=== PATIENT | female | born 1930 | race Caucasian/White ===

== ENCOUNTER → 2017-09-17 08:15 | Outpatient (CLI) | payer MEDICARE, BC | END | disposition home or self-care (01) | LOC: D.CT 08:15 | DX: J44.9 Chronic obstructive pulmonary disease, unspecified (principal) ==

== ENCOUNTER → 2017-10-07 10:00 | Outpatient (CLI) | payer MEDICARE, BC | END | disposition home or self-care (01) | LOC: D.RT 10:00 | DX: J44.9 Chronic obstructive pulmonary disease, unspecified (principal) ==

== ENCOUNTER → 2017-12-02 09:34 | Outpatient (CLI) | payer MEDICARE, BC | END | disposition home or self-care (01) | LOC: D.CT 09:34 | DX: R26.89 Other abnormalities of gait and mobility (principal) ==

== ENCOUNTER → 2018-01-02 12:40 | Outpatient (CLI) | payer MEDICARE, BC | END | disposition home or self-care (01) | LOC: D.RT 12:40 | DX: R06.09 Other forms of dyspnea (principal) ==

== ENCOUNTER 2018-02-22 03:01 | Emergency (ER) | payer MEDICARE, BC ==
[~2018-02-22] VITALS: Ht 157.5 cm; Wt 50.0 kg
[2018-02-22 03:08] VITALS: Ht 157.5 cm; Wt 50.0 kg
[2018-02-22] MEDS ORDERED: NORVASC2.5 MG PO (03:09)
[2018-02-22] MEDS ORDERED: TOPROL XL25 MG PO (03:09)
[2018-02-22] MEDS ORDERED: METAMUCIL PACKE1 PKT PO (03:10)
[2018-02-22] MEDS ORDERED: CELEBREX200 MG PO (03:10)
[2018-02-22] MEDS ORDERED: MIRALAX17 GM PO (03:10)
[2018-02-22] MEDS ORDERED: BAYER CHEWABLE81 MG PO (03:10)
[2018-02-22] MEDS ORDERED: AMBIEN5 MG PO (03:10)
[2018-02-22] MEDS ORDERED: VITAMIN D31000 UNIT PO (03:11)
[2018-02-22] MEDS ORDERED: AVAPRO150 MG PO (03:11)
[2018-02-22 03:29] LABS: BASOPHILS 1.1 % (0-2); EOSINOPHILS 2.3 % (0-7); HEMATOCRIT 32.6 % (36.0-48.0); HEMOGLOBIN 11.2 g/dL (12-16); IMMATURE GRANULOCYTES 0.3 % (0-5); LYMPHOCYTES 26.1 % (15-50); MCH 29.2 pg (26.0-34.0); MCHC 34.4 g/dL (31.0-37.0); MCV 85.1 fL (80.0-100.0); MEAN PLATELET VOLUME 10.1 fL (7.4-10.4); MONOCYTES 12.2 % (2-11); PLATELET COUNT 261 10x3/uL (130-400); RBC 3.83 10x6/uL (4.00-5.40); RDW 15.5 % (11.5-14.5); WBC 7.3 10x3/uL (4.8-10.8)
[2018-02-22 03:43] LABS: ALBUMIN 3.8 g/dL (3.4-5.0); ANION GAP 16.1 mmol/L (8-16); BILIRUBIN - TOTAL 0.19 mg/dL (0.2-1.3); CALCIUM 9.2 mg/dL (8.5-10.1); CARBON DIOXIDE 23.4 mmol/L (21.0-32.0); CREATININE - SERUM 1.3 mg/dL (0.6-1.3); POTASSIUM - SERUM 4.5 mmol/L (3.5-5.1); PROTEIN - SERUM 7.4 g/dL (6.4-8.2)
[2018-02-22 04:54] LABS: COLOR YELLOW (YELLOW)
[2018-02-22 04:55] LABS: APPEARANCE CLEAR (CLEAR); BILIRUBIN NEGATIVE (NEGATIVE); GLUCOSE NEGATIVE (NEGATIVE); KETONE NEGATIVE (NEGATIVE); NITRITE NEGATIVE (NEGATIVE); PROTEIN NEGATIVE (NEGATIVE); UROBILINOGEN NORMAL (NORMAL)
[2018-02-22 05:49] VITALS: BP 152/63
== END 2018-02-22 05:51 | disposition home or self-care (01) ==
LOC: D.ER 03:01
PROVIDERS: Emergency Medicine
DX: I10 Essential (primary) hypertension (principal); E87.1 Hypo-osmolality and hyponatremia; J44.9 Chronic obstructive pulmonary disease, unspecified

== ENCOUNTER → 2018-07-08 09:45 | Outpatient (CLI) | payer MEDICARE, BC ==
[2018-02-22 03:08] VITALS: BMI 20.1
[~2018-07-08 09:45] MED LIST: AMBIEN5 MG PO; AVAPRO150 MG PO; BAYER CHEWABLE81 MG PO; CELEBREX200 MG PO; METAMUCIL PACKE1 PKT PO; MIRALAX17 GM PO; NORVASC2.5 MG PO; TOPROL XL25 MG PO; VITAMIN D31000 UNIT PO
== END | disposition home or self-care (01) ==
LOC: D.CT 09:45
PROVIDERS: ATTEND Internal Medicine Pulmonary Disease
DX: R91.1 Solitary pulmonary nodule (principal)

== ENCOUNTER → 2018-08-20 10:22 | Outpatient (CLI) | payer MEDICARE, BC ==
[2018-02-22 03:08] VITALS: BMI 20.1
== END | disposition home or self-care (01) ==
LOC: D.RT 10:22
PROVIDERS: ATTEND Family Medicine
DX: R06.02 Shortness of breath (principal)

== ENCOUNTER → 2018-11-04 12:30 | Outpatient (CLI) | payer MEDICARE, BC ==
[2018-02-22 03:08] VITALS: BMI 20.1
== END | disposition home or self-care (01) ==
LOC: D.HCCARDIO 12:30
PROVIDERS: ATTEND Internal Medicine Cardiovascular Disease
DX: I34.0 Nonrheumatic mitral (valve) insufficiency (principal)

== ENCOUNTER 2018-11-14 20:35 | Emergency (ER) | payer MEDICARE, BC ==
[~2018-11-14] VITALS: Ht 157.5 cm; Wt 47.7 kg
[2018-11-14 20:45] VITALS: Ht 157.5 cm; Wt 47.7 kg
[2018-11-14] MEDS ORDERED: IPRAT-ALBUT 0.5-3 ML UPD (20:49)
[2018-11-14] MEDS ORDERED: HYDROCODON-ACE1 EAC7 PO (23:51)
[2018-11-15 00:10] VITALS: BP 176/66
== END 2018-11-15 00:10 | disposition home or self-care (01) ==
LOC: D.ER 20:35
DX: S82.201A Unspecified fracture of shaft of right tibia, initial encounter for closed fracture (principal); W01.0XXA Fall on same level from slipping, tripping and stumbling without subsequent striking against object, initial encounter; I10 Essential (primary) hypertension; J44.9 Chronic obstructive pulmonary disease, unspecified

== ENCOUNTER → 2018-11-28 13:12 | Outpatient (CLI) | payer MEDICARE, BC ==
[2018-11-14 20:45] VITALS: BMI 19.2
[~2018-11-28 13:12] MED LIST changes: +HYDROCODON-ACE1 EAC7 PO; +IPRAT-ALBUT 0.5-3 ML UPD
== END | disposition home or self-care (01) ==
LOC: D.HCCARDIO 13:12
PROVIDERS: ATTEND Internal Medicine Cardiovascular Disease
DX: I34.0 Nonrheumatic mitral (valve) insufficiency (principal)

== ENCOUNTER → 2018-12-16 11:30 | Outpatient (CLI) | payer MEDICARE, BC ==
[2018-11-14 20:45] VITALS: BMI 19.2
== END | disposition home or self-care (01) ==
LOC: D.HCCARDIO 11:30
PROVIDERS: ATTEND Internal Medicine Cardiovascular Disease
DX: R06.02 Shortness of breath (principal)